=== PATIENT | female | born 1950 | race Asian ===

== ENCOUNTER → 2018-01-23 | Day surgery (SDC) | payer OTHER, MEDICARE ==
[~2018-01-23] MED LIST: FLUMAZENIL 0.5 MG/5 ML MDV IVP ONE; FLUMAZENIL 0.5 MG/5 ML MDV IVP PRN; HEPARIN 10,000 UNIT/10 ML MDV (1,000 UNIT/ML) IVP PRN; IOPAMIDOL (ISOVUE-300) 100 ML BTL ONE; MIDAZOLAM 2 MG/2 ML VIAL IVP PRN; MIDAZOLAM 2 MG/2 ML VIAL ONE; NALOXONE HCL 0.4 MG/ML INJ IVP PRN; NALOXONE HCL 0.4 MG/ML INJ ONE; NS 1,000 ML IV SCH; ONDANSETRON 4 MG/2 ML VIAL IVP PRN; OXYCODONE/APAP 5/325 TAB PO PRN; fentaNYL 100 MCG/2 ML INJ IVP PRN; fentaNYL 100 MCG/2 ML INJ ONE
[2018-01-23 12:33] VITALS: PULSE 65; TEMP 98.9
[2018-01-23 13:35] VITALS: RESP 16
--- NOTE | 2018-01-23 13:49 | PDPROPOC ---
Sedation Plan of Care Sedation Plan of Care: vital signs stable ASA Classification: ASA 2 Planned drugs: fentanyl, midazolam Mallampati Score: Class 2 Mallampati Reference Image: Patient passed 3-3-2 rule?: Yes
--- NOTE | 2018-01-23 13:51 | POSTOPPROG ---
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
[2018-01-23 13:54] VITALS: BP 146/73; O2SAT 98
== END | disposition home or self-care (01) ==
LOC: FIMAGING 11:27
PROVIDERS: ATTEND Neurological Surgery
DX: Q28.2 Arteriovenous malformation of cerebral vessels (principal)
CPT/HCPCS: 36224; 36228; 99152; 99153; C1769; J1644; J2250; J2310; J3010; Q9967